=== PATIENT | male | born 1965 | race African-American/Black ===

== ENCOUNTER 2018-01-24 15:18 | Emergency (ER) | payer OTHER ==
[~2018-01-24] VITALS: Ht 180.3 cm; Wt 84.8 kg
[~2018-01-24 15:18] MED LIST: AMLODIPINE BESYL5 MG ORAL; ASPIRIN325 MG ORAL; FISH OIL 1,0001 EAC1 ORAL; IBUPROFEN600 MG ORAL; ISENTRESS400 MG ORAL; KEFLEX250 M1 PO; PERMETHRIN60 GM TOPIC; PRAVASTATIN SOD20 M1 ORAL; TRICOR145 MG ORAL; TRUVADA 200 MG1 EAC1 ORAL
[2018-01-24 15:29] VITALS: BP 147/97
[2018-01-24] MEDS ORDERED: Ketorolac 30mg Inj IM ONE (16:30)
--- NOTE | 2018-01-24 16:36 | Emergency Room Report ---
History of Present Illness General Chief Complaint: Neck Pain Source: Patient Present Illness HPI Pt. presents to the ED c/o mainly right sided 9/10 in severity lateral neck pain described as "soreness, and tightness" but also some left sided discomfort as well. pt. reports radiates up the back of the head. pt. reports progressive onset after a long photo-shoot 2 days ago which he states "had a lot of complicated positions being held for a long time." He denies fevers, chills, photophobia. Denies recent chiropractic spinal manipulations. Denies trauma or fall. Denies pain with putting his chin to his chest. Patient reports only mild relief from Motrin. Denies numbness tingling or loss of sensation or gross motor movements of the extremities, incontinence of bowel or bladder. Denies CP, Palpitations, LOC, AMS, dizziness, Changes in Vision, weakness or a sudden severe headache. Allergies: Coded Allergies: SULFA (SULFONAMIDE ANTIBIOTICS) (Unverified Allergy, Unknown, 11/17/13) SULFAMETHOXAZOLE (Verified Allergy, Unknown, 04/02/16) TRIMETHOPRIM (Verified Allergy, Unknown, 04/02/16) Patient History Past Medical History: see triage record Past Surgical History: none Pertinent Family History: none Reviewed Nursing Documentation: PMH: Agreed; PSxH: Agreed Nursing Documentation-PMH Past Medical History: No History, Except For Hx Hypertension: Yes Review of Systems All Other Systems: negative except mentioned in HPI Physical Exam Vital Signs Date Time Temp Pulse Resp B/P (MAP) Pulse Ox O2 Delivery O2 Flow Rate FiO2 01/24/18 15:25 98.3 120 18 147/97 96 Room Air 98.2 Sp02 EP Interpretation: reviewed, normal General Appearance: no apparent distress, alert, GCS 15, non-toxic Head: normocephalic, atraumatic Eyes: bilateral eye normal inspection, bilateral eye PERRL ENT: hearing grossly normal, normal voice Neck: full range of motion, no meningismus, no bony tend, tender lateral - right and left paracervical musculature. pain with ROM , but FROM Respiratory: chest non-tender, lungs clear, normal breath sounds, no wheezing, speaking full sentences Cardiovascular #1: regular rate, rhythm Musculoskeletal: back normal, gait/station normal, normal range of motion, non- tender - other than mentioned under ENT section Neurologic: alert, oriented x3, responsive, motor strength/tone normal, sensory intact, normal gait, speech normal, grossly normal Psychiatric: judgement/insight normal Skin: normal color, no rash, warm/dry, well hydrated Medical Decision Making PA Attestation Dr. August is my supervising Physician whom patient management has been discussed with. Diagnostic Impression: Primary Impression: Neck muscle strain Qualified Codes: S16.1XXA - Strain of muscle, fascia and tendon at neck level , initial encounter Additional Impression: Neck pain ER Course Pt. presents to the ED c/o mainly right sided 9/10 in severity lateral neck pain described as "soreness, and tightness" but also some left sided discomfort as well. pt. reports radiates up the back of the head. pt. reports progressive onset after a long photo-shoot 2 days ago which he states "had a lot of complicated positions being held for a long time." He denies fevers, chills, photophobia. Denies recent chiropractic spinal manipulations. Denies trauma or fall. Denies pain with putting his chin to his chest. Patient reports only mild relief from Motrin. Denies numbness tingling or loss of sensation or gross motor movements of the extremities, incontinence of bowel or bladder. Denies CP, Palpitations, LOC, AMS, dizziness, Changes in Vision, weakness or a sudden severe headache. Ddx considered but are not limited to Fracture, dislocation, contusion, meningitis, Sprain/Strain/Spasm Vital signs: are WNL, pt. is afebrile H&PE are most consistent with muscle spasm. not highly suspicious of meningitis at this time. ORDERS: none required at this time. ED INTERVENTIONS: -Soma PO -Toradol IM d/w pt. conservative treatment, and to follow up with a primary care provider. pt given a list of primary care clinics for follow up. d/w pt. to return to the ED with worsening or new symptoms. DISCHARGE: At this time pt. is stable for d/c to home. Will provide printed patient care instructions, and any necessary prescriptions. Care plan and follow up instructions have been discussed with the patient prior to discharge. Last Vital Signs Date Time Temp Pulse Resp B/P (MAP) Pulse Ox O2 Delivery O2 Flow Rate FiO2 01/24/18 15:25 98.3 120 18 147/97 96 Room Air 98.2 Disposition: HOME, SELF-CARE Condition: Stable Scripts Acetaminophen* (TYLENOL EXTRA STRENGTH*) 500 Mg Tablet 500 MG ORAL Q6H, #20 TAB 0 Refills Prov: Yesica Street 01/24/18 Methocarbamol* (ROBAXIN-750*) 750 Mg Tablet 750 MG PO QID, #28 TAB 0 Refills Prov: Yesica Street 01/24/18 Patient Instructions: Muscle Strain, [id number] Additional Instructions: Take medications as directed. Follow up with a Primary Care Provider in 3-5 days, even if your symptoms have resolved. --Please review list of primary care clinics, if you do not already have a primary care provider Return sooner to ED if new symptoms occur, or current symptoms become worse. Do not drink alcohol, drive, or operate heavy machinery while taking Robaxin ( Muscle Relaxers) as this may cause drowsiness. - Please note that this Emergency Department Report was dictated using [employer] inserter technology software, occasionally this can lead to erroneous entry secondary to interpretation by the dictation equipment. Yesica Street Jan 24, 2018 16:36
[2018-01-24] MEDS ORDERED: ROBAXIN-750750 MG PO (16:51)
[2018-01-24] MEDS ORDERED: TYLENOL EXTRA500 MG ORAL (16:51)
[2018-01-24 17:13] VITALS: BP 134/99
[2018-01-24 17:14] VITALS: BP 134/94
== END 2018-01-24 17:14 | disposition home or self-care (01) ==
LOC: EMR 16:03
DX: S16.1XXA Strain of muscle, fascia and tendon at neck level, initial encounter (principal); X50.1XXA Overexertion from prolonged static or awkward postures, initial encounter
CPT/HCPCS: 96372; 99283; J1885

== ENCOUNTER 2018-03-22 08:20 | Emergency (ER) | payer OTHER ==
[~2018-03-22] VITALS: Ht 180.3 cm; Wt 82.6 kg
[~2018-03-22 08:20] MED LIST changes: +ROBAXIN-750750 MG PO; +TYLENOL EXTRA500 MG ORAL
[2018-03-22 08:31] VITALS: BP 146/98
[2018-03-22] MEDS ORDERED: ROBAXIN-750750 MG PO (09:06)
[2018-03-22] MEDS ORDERED: PREDNISONE20 MG ORAL (09:06)
[2018-03-22] MEDS ORDERED: IBUPROFEN600 MG ORAL (09:06)
[2018-03-22 09:16] VITALS: BP 141/95
--- NOTE | 2018-03-22 09:37 | Emergency Room Report ---
History of Present Illness General Chief Complaint: Neck Pain Source: Patient Present Illness HPI Patient sense with complaints of bilateral lower neck upper trapezius discomfort He feels that it might have something to do with the way he sleeps He reports that in the morning he wakes up with increased discomfort Then throughout the day it improves Currently on presentation has very minimal discomfort Denies any recent trauma Reports that this is the third time being seen for similar problem Most recently there was some consideration for a photo shoot which had caused some discomfort Otherwise denies any posterior midline neck pain or meningismal type discomfort denies any fevers or chills denies any chest pain or short of breath patient also felt that intermittently he had some neuropathy in all fingertips on both hands Allergies: Coded Allergies: SULFA (SULFONAMIDE ANTIBIOTICS) (Unverified Allergy, Unknown, 11/17/13) SULFAMETHOXAZOLE (Verified Allergy, Unknown, 04/02/16) TRIMETHOPRIM (Verified Allergy, Unknown, 04/02/16) Patient History Past Medical History: see triage record Pertinent Family History: none Reviewed Nursing Documentation: PMH: Agreed; PSxH: Agreed Nursing Documentation-PMH Hx Hypertension: Yes Review of Systems All Other Systems: negative except mentioned in HPI Physical Exam Vital Signs Date Time Temp Pulse Resp B/P (MAP) Pulse Ox O2 Delivery O2 Flow Rate FiO2 03/22/18 08:23 97.9 98 18 147/100 98 Room Air Sp02 EP Interpretation: reviewed, normal General Appearance: well appearing, no apparent distress Head: normocephalic, atraumatic Eyes: bilateral eye PERRL, bilateral eye EOMI ENT: hearing grossly normal, normal pharynx, TMs + canals normal, uvula midline Neck: full range of motion, supple, no meningismus, no bony tend - However some reducible discomfort and bilateral mid trapezius region, also mild spasming and bilateral SCM. No obvious suprapubic clavicular masses Respiratory: lungs clear, normal breath sounds, no rhonchi, no respiratory distress, no retraction, no accessory muscle use Cardiovascular #1: normal peripheral pulses, regular rate, rhythm, no edema, no gallop, no JVD, no murmur Gastrointestinal: normal bowel sounds, non tender, soft, no mass, no organomegaly, non-distended, no guarding, no hernia, no pulsatile mass, no rebound Musculoskeletal: normal inspection Neurologic: oriented x3, responsive, youth accommodation support worker III-XII nml as tested, motor strength/ tone normal, sensory intact Psychiatric: mood/affect normal Skin: normal color, no rash, warm/dry, palpation normal Lymphatic: normal inspection, no adenopathy Medical Decision Making Diagnostic Impression: Primary Impression: muscle sprain Additional Impression: Neck pain ER Course Patient has a benign neurological neurological exam Equal chef de froid bilaterally Given the description of the discomfort worsening symptoms when he wakes up in improved throughout the day I feel patient is appropriate candidate for MRI imaging as outpatient process There was no other recent trauma to warrant any emergency imaging And patient will have initial conservative outpatient trial Last Vital Signs Date Time Temp Pulse Resp B/P (MAP) Pulse Ox O2 Delivery O2 Flow Rate FiO2 03/22/18 09:16 97.8 75 18 141/95 98 Room Air Status: unchanged Disposition: HOME, SELF-CARE Condition: Stable Scripts Methocarbamol* (ROBAXIN-750*) 750 Mg Tablet 750 MG PO TID, #21 TAB 0 Refills Prov: Evelyn August DO 03/22/18 Prednisone* (PREDNISONE*) 20 Mg Tablet 20 MG ORAL BID, #10 TAB Prov: Evelyn August DO 03/22/18 Ibuprofen* (MOTRIN*) 600 Mg Tablet 600 MG ORAL Q8H PRN for For Pain, #20 TAB 0 Refills Prov: Evelyn August DO 03/22/18 Referrals: [facility],REFERRING (PCP) Patient Instructions: Muscle Strain, [id number], Cervical Sprain, Easy-to- Read Additional Instructions: Patient is provided with the discharge instructions notified to follow up with primary doctor in the next 2-3 days otherwise return to the er with any worsening symptoms. Please note that this report is being documented using [employer] technology. This can lead to erroneous entry secondary to incorrect interpretation by the dictating instrument. Evelyn August DO Mar 22, 2018 09:37
== END 2018-03-22 09:16 | disposition home or self-care (01) ==
LOC: EMR 08:35
DX: M54.2 Cervicalgia (principal); M62.838 Other muscle spasm; I10 Essential (primary) hypertension; Z88.1 Allergy status to other antibiotic agents; Z88.2 Allergy status to sulfonamides
CPT/HCPCS: 99283

== ENCOUNTER 2019-04-06 10:16 | Emergency (ER) | payer OTHER ==
[~2019-04-06] VITALS: Ht 180.3 cm; Wt 85.7 kg
[~2019-04-06 10:16] MED LIST changes: +PREDNISONE20 MG ORAL
[2019-04-06 10:29] VITALS: BP 166/99
--- NOTE | 2019-04-06 10:34 | NUR ---
ED Nurse Note: Patient walked in from home due to possible STD from unprotected sex 3 weeks ago. pt reported he noticed dry patch around his penis since then. pt aao x4 and ambulatory. skin clean and intact. calm and cooperative. pt took hypertensive medication this morning. no cardiac or pulmonary acute distress noted at this time.
--- NOTE | 2019-04-06 10:35 | NUR ---
ED Nurse Note: assessed pt's complained area. no visible skin irritation or dry patch noted at this moment.
--- NOTE | 2019-04-06 10:55 | NUR ---
ED Nurse Note: ERMD at bedside with 1 RN present.
[2019-04-06 10:58] VITALS: BP 166/99
--- NOTE | 2019-04-06 10:58 | Emergency Room Report ---
History of Present Illness General Chief Complaint: Male Urogenital Problems Source: Patient Present Illness HPI Patient's [id number]-year-old male who presents after rash to his penis. He reports having unprotected sex. He denies any other current symptoms. He denies any dysuria or urgency. He denies any genital discharge. Denies any fever. Reports having undetectable viral load and normal cell counts. Allergies: Coded Allergies: SULFA (SULFONAMIDE ANTIBIOTICS) (Unverified Allergy, Unknown, 11/17/13) SULFAMETHOXAZOLE (Verified Allergy, Unknown, 04/02/16) TRIMETHOPRIM (Verified Allergy, Unknown, 04/02/16) Patient History Past Medical History: see triage record Reviewed Nursing Documentation: PMH: Agreed; PSxH: Agreed Nursing Documentation-PMH Past Medical History: No History, Except For Hx Hypertension: Yes Review of Systems All Other Systems: negative except mentioned in HPI Physical Exam Vital Signs Date Time Temp Pulse Resp B/P (MAP) Pulse Ox O2 Delivery O2 Flow Rate FiO2 04/06/19 10:22 98.2 124 22 166/99 (121) 99 Room Air General Appearance: well appearing, no apparent distress, alert, GCS 15 Head: normocephalic, atraumatic ENT: hearing grossly normal, normal voice Neck: full range of motion, supple Respiratory: no respiratory distress, speaking full sentences Genitourinary: normal inspection, other - no Skin lesions detected Musculoskeletal: no calf tenderness Neurologic: normal gait Psychiatric: mood/affect normal Skin: no rash Medical Decision Making Diagnostic Impression: Primary Impression: Rash and nonspecific skin eruption ER Course Patient presented for skin rash. Differential diagnosis include was not limited to eczema, contact dermatitis, abrasion among others. Patient has a benign exam and does not appear to require any imaging or laboratory testing at this time. Patient does not appear to have any evidence of any lesions to his penis that I can detect. Patient does not appear to have any current symptoms suggesting STD . patient was advised to follow-up with his primary care physician for recheck. He is to return if worse. Last Vital Signs Date Time Temp Pulse Resp B/P (MAP) Pulse Ox O2 Delivery O2 Flow Rate FiO2 04/06/19 10:29 98.2 120 22 166/99 99 Room Air Status: improved Disposition: HOME, SELF-CARE Condition: Stable Referrals: [facility],REFERRING (PCP) Patient Instructions: Medical Screening Exam Micah Monroe MD Apr 06, 2019 10:58
--- NOTE | 2019-04-06 10:59 | NUR ---
ED Nurse Note: Pt cleared by health care Provider for discharge. DC instructions/prescription was given and explained to pt and verbalized understanding of teachings. All medical deviecs such as ID band removed. Pt is AAO x4, ambulatory and left with all personal belongings.
== END 2019-04-06 10:59 | disposition home or self-care (01) ==
LOC: EMR 10:44
DX: R21 Rash and other nonspecific skin eruption (principal); I10 Essential (primary) hypertension; Z88.2 Allergy status to sulfonamides; Z88.8 Allergy status to other drugs, medicaments and biological substances
CPT/HCPCS: 99281